=== PATIENT | female | born 1985 | race Caucasian/White ===

== ENCOUNTER 2016-12-23 19:59 | Emergency (ER) | payer OTHER ==
[~2016-12-23] VITALS: Ht 172.7 cm; Wt 75.0 kg
[2016-12-23 20:01] VITALS: BP 140/87; PULSE 93; RESP 16; O2SAT 100
--- NOTE | 2016-12-23 21:40 | ED.REPORT ---
HPI-General Illness Date of Service Dec 23, 2016 ED Provider: Doc,Ed MD 31 yo F here with dental pain. Thinks it's associated with an abscess. No other complaints. Nursing Notes Stated Complaint: MOUTH PAIN Chief Complaint: Dental pain Allergies: Coded Allergies: No Known Allergies (Verified Allergy, Unknown, 12/23/16) General Time Seen by MD: 21:40 Chief Complaint Other Dental pain Physical Exam Vital Signs Vital Signs Date Time Temp Pulse Resp B/P Pulse Ox O2 Delivery O2 Flow Rate FiO2 12/23/16 20:01 37.0 93 16 140/87 100 Room Air Re-Eval/Medical Decision Med Decision/Clinical Course Patient eloped prior to my evaluation. Discharge & Departure Primary Impression: Toothache Referrals: NOPCP (PCP) Leif Dejesus MD Dec 23, 2016 21:40
== END 2016-12-23 23:54 | disposition left against medical advice (07) ==
LOC: SED 19:59
DX: K08.89 Other specified disorders of teeth and supporting structures (principal); Z53.21 Procedure and treatment not carried out due to patient leaving prior to being seen by health care provider